=== PATIENT | male | born 1955 | race Caucasian/White ===

== ENCOUNTER 2023-09-28 09:55 | Inpatient (IN) | payer MEDICARE ==
[~2023-09-28] VITALS: Ht 188 cm; Wt 109.7 kg
[2023-09-28 10:28] LABS: BASOPHILS ABSOLUTE AUTO 0.03 K/mm3 (0.00-0.23); BASOPHILS PERCENT AUTO 0 % (0-2); EOSINOPHILS ABSOLUTE AUTO 0.04 K/mm3 (0.00-0.68); EOSINOPHILS PERCENT AUTO 1 % (0-6); Hematocrit 44.5 % (37.0-53.0); IMMATURE GRAN ABSOLUTE AUTO 0.03 K/mm3 (0.00-0.10); IMMATURE GRAN PERCENT AUTO 0 % (0-1); LYMPHOCYTES ABSOLUTE AUTO 1.03 K/mm3 (0.84-5.20); LYMPHOCYTES PERCENT AUTO 14 % (21-46); MONOCYTES ABSOLUTE AUTO 0.35 K/mm3 (0.16-1.47); MONOCYTES PERCENT AUTO 5 % (4-13); Mean Corpuscular Volume 92 fL (80-100); Mean Platelet Volume 8.5 fL (9.1-12.4); NEUTROPHILS ABSOLUTE AUTO 5.89 K/mm3 (1.96-9.15); NEUTROPHILS PERCENT AUTO 80 % (41-73); Platelet Count 167 K/mm3 (150-400); RDW Coefficient Variation 13.1 % (11.7-14.2); RDW Standard Deviation 44.4 fL (35.1-46.3); Red Blood Cell Count 4.85 M/mm3 (4.30-5.90); White Blood Cell Count 7.37 K/mm3 (4.00-11.30)
[2023-09-28] MEDS ORDERED: NS 1,000 ML IV SCH (10:35)
[2023-09-28] MEDS ORDERED: Metoclopramide HCl 5MG / ML 2ML Vial IV ONE (10:35)
[2023-09-28 10:51] LABS: Albumin, Blood 3.7 g/dL (3.4-5.0); Albumin/Globulin Ratio 1.1 (0.8-1.8); Bilirubin, Total 0.5 mg/dL (0.1-1.0); Bun/Creatinine Ratio 22.9 (12.0-20.0); Calcium, Blood 8.9 mg/dL (8.5-10.1); Creatinine, Blood 0.79 mg/dL (0.60-1.20); Globulin, Blood 3.5 g/dL (2.2-4.0); Magnesium, Blood 1.7 mg/dL (1.6-2.4); Potassium, Blood 4.1 mmol/L (3.5-5.5); Total Protein, Blood 7.2 g/dL (6.4-8.2)
[2023-09-28] MEDS ORDERED: Aspirin 81 MG Chew PO ONE (11:50)
[2023-09-28] MEDS ORDERED: Nitroglycerin 1 INCH/GM PKT TOP ONE (11:55)
[2023-09-28 12:09] LABS: International Normalized Ratio 3.04
[2023-09-28 13:46] LABS: Adenovirus Not Detected (NOT DETECT); Bordetella pertussis Not Detected (NOT DETECT); Chlamydophila pneumoniae Not Detected (NOT DETECT); Coronavirus 229E Not Detected (NOT DETECT); Coronavirus HKU1 Not Detected (NOT DETECT); Coronavirus NL63 Not Detected (NOT DETECT); Coronavirus OC43 Not Detected (NOT DETECT); Human Metapneumovirus Not Detected (NOT DETECT); Human Rhinovirus/Enterovirus Not Detected (NOT DETECT); Influenza A/2009-H1 Not Detected (NOT DETECT); Influenza A/H1 Not Detected (NOT DETECT); Influenza A/H3 Not Detected (NOT DETECT); Influenza B Not Detected (NOT DETECT); Mycoplasma pneumoniae Not Detected (NOT DETECT); Parainfluenza Virus 1 Not Detected (NOT DETECT); Parainfluenza Virus 2 Not Detected (NOT DETECT); Parainfluenza Virus 3 Not Detected (NOT DETECT); Parainfluenza Virus 4 Not Detected (NOT DETECT); Respiratory Syncytial Virus Not Detected (NOT DETECT); SARS-Cov-2 (COVID-19), BioFire Not Detected (NOT DETECT)
[2023-09-28] MEDS ORDERED: Nitroglycerin 0.4 MG SUBL SL PRN (13:50)
[2023-09-28] MEDS ORDERED: Acetaminophen 325 MG TABLET PO PRN (13:55)
[2023-09-28 14:24] LABS: CHOL/HDL RATIO 3.3; Cholesterol 199 mg/dL (50-200); HDL Cholesterol 60 mg/dL (>39); LDL/HDL RATIO 2.1; Low Density Lipoprotein Chol 125 mg/dL (0-110); Triglycerides 68 mg/dL (30-160); Very Low Density Lipoprot Chol 13 mg/dL (6-32)
[2023-09-28] MEDS ORDERED: WARF5 PO (14:38)
[2023-09-28] MEDS ORDERED: Jantoven5 MG PO (14:39)
[2023-09-28 14:52] VITALS: BP 131/88
[2023-09-28] MEDS ORDERED: Insulin Regular 100 UNIT/ML 10ML Vial SC SCH (16:30)
--- NOTE | 2023-09-28 17:28 | NUR ---
SHIFT SUMMARY PT REMAINS ALERT AND ORIENTED. VS STABLE. HR REMAINS SB TO NSR. PT CONTINUES TO DENY CHEST PAIN. PT ABLE TO AMBULATE IN ROOM INDEPENDENTLY. PLAN TO BE NPO AT MIDNIGHT. WILL CONTINUE TO MONITOR AND REPORT TO ONCOMING RN
[2023-09-28 19:38] VITALS: BP 124/65
--- NOTE | 2023-09-28 20:34 | NUR ---
UPDATE KNOWN INFORMATION THAT PATIENT IS FRIENDS WITH DR. DAY, A PHYSCIAN IN THIS HOSPITAL. THIS RN OBSERVED DR. DAY IN PATIENT'S CHART IN DOCTOR DICATION AREA. THIS RN SPOKE WITH NURSING PACKAGING MANAGER ABOUT SITUATION. SPOKE WITH PATIENT REGARDING PERMISSION FOR DR. DAY TO BE VIEWING PATIENT'S MEDICAL RECORD. PATIENT VERBALIZED PERMISSION FOR DR. DAY TO VIEW ANY MEDICAL INFORMATION ELECTRONICALLY DUE TO BEING "FRIENDS SINCE [place]". PATIENT VERBALIZED APPRECIATION OF THIS RN SPEAKING TO PATIENT AND GAINING PERMISSION. SON AT BEDSIDE DURING THIS CONVERSATION WELL. PRIMARY RN UPDATED.
[2023-09-28 23:02] VITALS: BP 131/81
[2023-09-29 03:21] VITALS: BP 107/68
[2023-09-29 03:55] LABS: BASOPHILS ABSOLUTE AUTO 0.04 K/mm3 (0.00-0.23); BASOPHILS PERCENT AUTO 1 % (0-2); EOSINOPHILS PERCENT AUTO 2 % (0-6); Hematocrit 40.3 % (37.0-53.0); Hemoglobin 14.4 g/dL (13.5-17.5); IMMATURE GRAN ABSOLUTE AUTO 0.02 K/mm3 (0.00-0.10); IMMATURE GRAN PERCENT AUTO 0 % (0-1); LYMPHOCYTES PERCENT AUTO 26 % (21-46); MONOCYTES ABSOLUTE AUTO 0.57 K/mm3 (0.16-1.47); MONOCYTES PERCENT AUTO 9 % (4-13); Mean Corpuscular HGB 33.3 pg (26.0-34.0); Mean Corpuscular HGB Conc 35.7 g/dL (31.5-36.5); Mean Corpuscular Volume 93 fL (80-100); NEUTROPHILS ABSOLUTE AUTO 3.77 K/mm3 (1.96-9.15); NEUTROPHILS PERCENT AUTO 62 % (41-73); Platelet Count 147 K/mm3 (150-400); RDW Coefficient Variation 13.1 % (11.7-14.2); RDW Standard Deviation 45.1 fL (35.1-46.3); Red Blood Cell Count 4.32 M/mm3 (4.30-5.90)
[2023-09-29 04:09] LABS: International Normalized Ratio 2.75; Prothrombin Time Results 27.3 Sec (9.7-11.5)
[2023-09-29 04:13] LABS: Bun/Creatinine Ratio 18.4 (12.0-20.0); Calcium, Blood 8.3 mg/dL (8.5-10.1); Creatinine, Blood 0.65 mg/dL (0.60-1.20); Potassium, Blood 3.8 mmol/L (3.5-5.5)
--- NOTE | 2023-09-29 04:47 | NUR ---
SHIFT SUMMARY: PT A/Ox4 AND PLEASANT WITH CARE. TELE: SB 40s-50s W/ BBB. BP STABLE AND PT DENIES CHEST PAIN OR SOB T/O SHIFT. PT NPO AT 0000 FOR ANGIO THIS AM. INDEPENDENT IN ROOM TO BATHROOM AND CALLS APPROPRIATELY FOR ASSISTANCE. CALL LIGHT IN REACH AND BED IN LOWEST POSITION. WILL GIVE REPORT TO ONCOMING RN.
[2023-09-29 08:01] VITALS: BP 132/92
[2023-09-29] MEDS ORDERED: Atorvastatin 40 MG Tab PO SCH (09:00)
[2023-09-29] MEDS ORDERED: Aspirin 81 MG Chew PO SCH (09:00)
[2023-09-29] MEDS ORDERED: Potassium Chloride 20 MEQ TabCR PO ONE (09:45)
[2023-09-29] MEDS ORDERED: Magnesium Sulf 2 GM/Water 50ML 50 ML IV ONE (09:45)
[2023-09-29 12:10] VITALS: BP 113/70
[2023-09-29 14:56] LABS: International Normalized Ratio 2.2
[2023-09-29 15:29] VITALS: BP 128/74
[2023-09-29 15:35] LABS: Prothrombin Time Results 22.2 Sec (9.7-11.5)
--- NOTE | 2023-09-29 17:31 | NUR ---
SHIFT SUMMARY PT REMAINS ALERT AND ORIENTED. BP STABLE. HR REMAINS SINUS DARCY TO NSR. QTC HAS NO LONGER PROLONGED SINCE MAG INFUSION. PT CONTINUES TO DENY CHEST PAIN. PT INDEPENDENT IN ROOM. PLAN FOR PATIENT TO BE NPO AFTER MIDNIGHT FOR POSSIBLE ANGIO IN THE AM. WILL CONTINUE TO MONITOR AND REPORT TO ONCOMING RN
[2023-09-29 19:22] VITALS: BP 121/70
--- NOTE | 2023-09-29 20:39 | NUR ---
ASSUMPTION OF CARE AFTER RECEIVING REPORT FROM MATEUSZ TELLES, THIS RN ASSUMED CARE AT APPROX 1915. PATIENT ALERT, VISITING WITH FAMILY AT BEDSIDE DURING INITIAL ENCOUNTER. ALERT AND ORIENTED X4. COMMUNICATING NEEDS EFFECTIVELY. RECEPTIVE TO EDUCATION. TELEMETRY SHOWING SINUS DARCY W/ BBB 60s. DENIES CHEST PAIN, PRESSURE. PATIENT TO BE NPO AT MIDNIGHT FOR ANGIO TOMORROW MORNING. ON ROOM AIR, SATs >90%. RESPIRATIONS EVEN, UNLABORED. INDEPENDENT WITH ALL ADLs. SHOWERED THIS EVENING. CALL LIGHT IN REACH.
[2023-09-29 23:31] VITALS: BP 132/94
[2023-09-30] VITALS (7 sets, daily range): BP systolic 113–142; BP diastolic 74–98
[2023-09-30 04:51] LABS: International Normalized Ratio 1.81; Prothrombin Time Results 18.5 Sec (9.7-11.5)
--- NOTE | 2023-09-30 05:06 | NUR ---
SHIFT SUMMARY NO ACUTE EVENTS SINCE ASSUMPTION OF CARE. PATIENT SLEPT THROUGHOUT SHIFT. EASILY AROUSABLE WITH VERBAL STIMULI. INDEPENDENT IN ROOM. COMMUNICATES NEEDS EFFECTIVELY PRN. TELEMETRY SHOWING SINUS DARCY WITH BBB 50s-60s. BP STABLE. DENIES CHEST PAIN, PRESSURE OR SHORTNESS OF BREATH THROUGHOUT SHIFT. NPO SINCE MIDNIGHT FOR ANGIOGRAM TODAY. REMAINS ON ROOM AIR, SATs >90%. RESPIRATIONS EVEN, UNLABORED. CALL LIGHT IN REACH. WILL CONTINUE TO MONITOR AND REPORT TO ONCOMING RN.
[2023-09-30] MEDS ORDERED: Clopidogrel Bisulfate 75 MG Tab PO ONE (06:50)
[2023-09-30] MEDS ORDERED: Heparin Sodium 1000 Units/ML 10ML MDV ONE ×2 (07:25→08:30)
[2023-09-30] MEDS ORDERED: Nitroglycerin 2 MG/20 ML BTL ONE (07:25)
[2023-09-30] MEDS ORDERED: Verapamil HCL 2.5 MG/ML 2ML Injection ONE (07:25)
[2023-09-30] MEDS ORDERED: NS 1,000 ML IV ONE ×2 (07:25→08:31)
[2023-09-30] MEDS ORDERED: NS 250 ML IV ONE (07:25)
[2023-09-30] MEDS ORDERED: FentaNYL Citrate 50 MCG/ML 2 ML Injection ONE (08:30)
[2023-09-30] MEDS ORDERED: Midazolam HCl 1MG / ML 2ML Vial ONE (08:30)
[2023-09-30 08:45] LABS: Albumin, Blood 3.2 g/dL (3.4-5.0); Bilirubin, Total 1.2 mg/dL (0.1-1.0); Calcium, Blood 8.6 mg/dL (8.5-10.1); Creatinine, Blood 0.76 mg/dL (0.60-1.20); Globulin, Blood 3.3 g/dL (2.2-4.0); Magnesium, Blood 2.2 mg/dL (1.6-2.4); Total Protein, Blood 6.5 g/dL (6.4-8.2)
[2023-09-30] MEDS ORDERED: Heparin Sodium,Porcine/0.5 NS 500 ML IV SCH (13:10)
[2023-09-30] MEDS ORDERED: Heparin Sodium 5000 Units/ML 1ML MDV IV ONE (13:20)
--- NOTE | 2023-09-30 15:51 | NUR ---
ATTEMPTED TO CALL RN REPORT TO [facility], ROOM HAS NOT BEEN ASSIGNED, THEY WILL CALL BACK WHEN THEY HAVE A ROOM AND RN ASSIGNED.
--- NOTE | 2023-09-30 17:07 | NUR ---
SHIFT SUMMARY PT WENT FOR ANGIOGRAM. RECOVERED TR BAND PER ORDERS. RADIAL PULSE PALPABLE, CAP REFILL <3 SECONDS, NO BRUISING OR SWELLING AT SITE. PT A/0X4, COOPERATIVE WITH CARE AND MAKES NEEDS KNOWN. PT DENIES CHEST PAIN, CHEST PRESSURE. PT KIRA TRANSFERRED TO TAFT. REPORT GIVEN TO TRANSPORT CREW.
--- NOTE | 2023-09-30 17:20 | NUR ---
REPORT GIVEN TO HO TELLES TO ASSUME CARE FOR COBRA TRANSFER.
== END 2023-09-30 15:13 | disposition short-term general hospital (02) | DRG 282 ==
LOC: ER 09:55 → PCU 13:50
PROVIDERS: Student in an Organized Health Care Education/Training Program; ADMIT Family Medicine
PROC: B2111ZZ Fluoroscopy of Multiple Coronary Arteries using Low Osmolar Contrast (ICD-10-PCS; principal; 2023-09-30)
DX: I21.4 Non-ST elevation (NSTEMI) myocardial infarction (principal); I25.10 Atherosclerotic heart disease of native coronary artery without angina pectoris; E66.9 Obesity, unspecified; D69.6 Thrombocytopenia, unspecified; E11.9 Type 2 diabetes mellitus without complications; E78.5 Hyperlipidemia, unspecified; R79.1 Abnormal coagulation profile; F10.90 Alcohol use, unspecified, uncomplicated; Z96.643 Presence of artificial hip joint, bilateral; Z88.8 Allergy status to other drugs, medicaments and biological substances; Z79.01 Long term (current) use of anticoagulants; Z86.711 Personal history of pulmonary embolism; Z86.718 Personal history of other venous thrombosis and embolism; Z68.31 Body mass index [BMI] 31.0-31.9, adult
CPT/HCPCS: 0202U; 36415; 71046; 76937; 80048; 80053; 80061; 82947; 83036; 83735; 84145; 84443; 84484; 85025; 85347; 85610; 93005; 93010; 93306; 93454; 96360; 96361; 99152; 99153; 99285-25; A9270; C1769; C1894; J1644; J2250; J2765; J3010; J3475; J7030; J7050; Q9967